=== PATIENT | male | born 1980 | race Caucasian/White ===

== ENCOUNTER 2019-06-19 16:59 | Emergency (ER) | payer BC ==
[2019-06-19 17:13] VITALS: BP 149/87
--- NOTE | 2019-06-19 17:56 | ER Document Report ---
ED Medical Screen (RME) - General Chief Complaint: Abscess Stated Complaint: ABSCESS/PUBIC AREA Time Seen by Provider: 06/19/19 17:51 Primary Care Provider: ROHAN MARTIN [Primary Care Provider] - Follow up as needed Notes: Patient is a 38-year-old male who presents emergency department with a chief complaint of abscess. Patient reports that to his left groin area he had a pimple around the site where he shaves. Patient reports over the past 1-1/2 weeks this is become more large red and swollen. Patient denies drainage. Patient reports this appears to be an abscess. Patient reports that the redness does not extend into the scrotum or penis area. Patient reports it extremely painful. Patient denies a history of MRSA or previous abscess. TRAVEL OUTSIDE OF THE [place] IN LAST 30 DAYS: No - Related Data Allergies/Adverse Reactions: No Known Allergies Allergy (Verified 06/19/19 17:49) Past Medical History - Social History Chew tobacco use (# tins/day): No Frequency of alcohol use: None Drug Abuse: None - Immunizations Hx Diphtheria, Pertussis, Tetanus Vaccination: Yes Physical Exam - Vital signs Vitals: Temp Pulse Resp BP Pulse Ox 98.3 F 80 18 149/87 H 100 06/19/19 17:12 06/19/19 17:12 06/19/19 17:12 06/19/19 17:12 06/19/19 17:12 Course - Re-evaluation Re-evalutation: 06/19/19 17:56 Patient will require a thorough exam once in a private room to determine if this is an abscess that needs to be incised and drained. I did make patient aware of this. I have greeted and performed a rapid initial assessment of this patient. A comprehensive ED assessment and evaluation of the patient, analysis of test results and completion of the medical decision making process will be conducted by additional ED providers. - Vital Signs Vital signs: Temp Pulse Resp BP Pulse Ox 98.3 F 80 18 149/87 H 100 06/19/19 17:12 06/19/19 17:12 06/19/19 17:12 06/19/19 17:12 06/19/19 17:12 Doctor's Discharge - Discharge Referrals: ROHAN MARTIN [Primary Care Provider] - Follow up as needed
== END 2019-06-19 21:21 | disposition left against medical advice (07) ==
LOC: ER 16:59
DX: L02.211 Cutaneous abscess of abdominal wall (principal)
CPT/HCPCS: 99281